=== PATIENT | female | born 1945 | race Caucasian/White ===

== ENCOUNTER 2023-01-17 13:12 | Emergency (ER) | payer MEDICARE, OTHER ==
[2023-01-17] MEDS ORDERED: Ketorolac Tromethamine 30 MG/ML VIAL ONE (15:07)
[2023-01-17] MEDS ORDERED: traMADol HCl 50 MG TAB ONE (15:07)
== END 2023-01-17 16:01 | disposition short-term general hospital (02) ==
LOC: ERS 13:12
DX: L08.9 Local infection of the skin and subcutaneous tissue, unspecified (principal); E78.5 Hyperlipidemia, unspecified; I10 Essential (primary) hypertension
CPT/HCPCS: 96372; J1885

== ENCOUNTER 2023-05-02 16:04 | Inpatient (IN) | payer MEDICARE, OTHER ==
[2023-05-02 17:01] LABS: #Monocytes 0.4 thou/uL (0.11-0.59); #Neutrophils 2.3 thou/uL (1.40-6.50); %Basophils 0.3 % (0.0-1.0); %Lymphocytes 28.1 % (21.0-51.0); %Monocytes 9.3 % (0.0-10.0); %Neutrophils 60.3 % (42.0-75.0); Hematocrit 22.4 % (36.0-47.0); Hemoglobin 7.5 g/dL (12.0-16.0); Mean Corpuscular HGB CONC 33.5 g/dL (32.0-36.0); Mean Corpuscular Hemoglobin 30.6 pg (27.0-31.0); Mean Corpuscular Volume 91.4 fl (78.0-98.0); Mean Platelet Volume 11.9 fL (7.4-10.4); RBC Distribution Width 16.3 % (11.5-14.5); Red Blood Cell (RBC) Count 2.45 mill/uL (4.20-5.40); White Blood Cell (WBC) Count 3.9 10x3/uL (4.8-10.8)
[2023-05-02 17:03] LABS: Platelet Count 63 10x3/uL (130-400)
[2023-05-02 17:19] LABS: INR-International Normal Ratio 0.9; Prothrombin Time 12.5 sec (12.0-14.7)
[2023-05-02 17:20] LABS: PTT 31.4 sec (22.9-36.1)
[2023-05-02 17:25] LABS: ALT (SGPT) 19 U/L (8-55); AST (SGOT) 25 U/L (5-34); Albumin 3.1 g/dL (3.4-4.8); Alkaline Phosphatase 110 U/L (40-110); Anion Gap 13 mmol/L (10-20); BUN (Urea Nitrogen) 17 mg/dL (9.8-20.1); Bilirubin, Total 0.3 mg/dL (0.2-1.2); Calc. Creatinine Clearance 0 mL/min (70-130); Calcium 8.7 mg/dL (7.8-10.44); Carbon Dioxide 25 mmol/L (23-31); Chloride 96 mmol/L (98-107); Estimated GFR 48; Globulin 2.4 g/dL (2.4-3.5); Glucose 95 mg/dL (83-110); Potassium 4.4 mmol/L (3.5-5.1); Protein, Total 5.5 g/dL (5.8-8.1); Sodium 130 mmol/L (136-145)
[2023-05-02] MEDS ORDERED: traMADol HCl 50 MG TAB PO PRN (20:19)
[2023-05-02 21:36] VITALS: BMI 23.5
[2023-05-02] MEDS: Sodium Chloride 0.9% 1,000 ML IV SCH (21:53)
[2023-05-03 07:57] LABS: #Eosinphils 0.1 thou/uL (0.0-0.7); #Monocytes 0.6 thou/uL (0.11-0.59); #Neutrophils 2.2 thou/uL (1.40-6.50); %Basophils 0.5 % (0.0-1.0); %Eosinophils 1.6 % (0.0-10.0); %Lymphocytes 34.7 % (21.0-51.0); %Monocytes 13.4 % (0.0-10.0); %Neutrophils 48.7 % (42.0-75.0); Hematocrit 22.6 % (36.0-47.0); Hemoglobin 7.4 g/dL (12.0-16.0); Mean Corpuscular HGB CONC 32.7 g/dL (32.0-36.0); Mean Corpuscular Hemoglobin 30.5 pg (27.0-31.0); Mean Platelet Volume 12.5 fL (7.4-10.4); RBC Distribution Width 16.5 % (11.5-14.5); Red Blood Cell (RBC) Count 2.43 mill/uL (4.20-5.40); White Blood Cell (WBC) Count 4.4 10x3/uL (4.8-10.8)
[2023-05-03 08:03] LABS: Platelet Count 57 10x3/uL (130-400)
[2023-05-03 08:31] LABS: ALT (SGPT) 14 U/L (8-55); AST (SGOT) 20 U/L (5-34); Albumin 2.5 g/dL (3.4-4.8); Alkaline Phosphatase 93 U/L (40-110); Anion Gap 15 mmol/L (10-20); BUN (Urea Nitrogen) 13 mg/dL (9.8-20.1); Bilirubin, Total 0.3 mg/dL (0.2-1.2); Calc. Creatinine Clearance 47 mL/min (70-130); Calcium 8.5 mg/dL (7.8-10.44); Carbon Dioxide 20 mmol/L (23-31); Chloride 102 mmol/L (98-107); Estimated GFR 65; Globulin 2.1 g/dL (2.4-3.5); Glucose 75 mg/dL (83-110); Iron 31 ug/dL (50-170); Potassium 4.3 mmol/L (3.5-5.1); Protein, Total 4.6 g/dL (5.8-8.1); Sodium 133 mmol/L (136-145)
[2023-05-03 08:52] LABS: Iron Binding Capacity, Total 116 mcg/dL (265-497)
[2023-05-03] MEDS: Atorvastatin Calcium 40 MG TAB PO SCH (10:05)
[2023-05-03] MEDS: cloNIDine 0.1 MG TAB PO SCH (10:05)
[2023-05-03] MEDS ORDERED: Iopamidol-370 76% 500 ML MDV (1 ML CHARGE) ONE (10:36)
[2023-05-03] MEDS ORDERED: Iron, Sodium Ferric Gluconate 250 MG in Sodium Chloride 0.9% 250 ML 250 ML IVPB SCH (12:00)
[2023-05-03] MEDS: Sodium Chloride 0.9% 1,000 ML IV SCH (20:42)
[2023-05-04] MEDS: Atorvastatin Calcium 40 MG TAB PO SCH (08:37)
[2023-05-04] MEDS: cloNIDine 0.1 MG TAB PO SCH (08:40)
[2023-05-04 13:57] LABS: #Eosinphils 0.1 thou/uL (0.0-0.7); #Neutrophils 3.4 thou/uL (1.40-6.50); %Basophils 0.6 % (0.0-1.0); %Eosinophils 0.9 % (0.0-10.0); %Lymphocytes 28.7 % (21.0-51.0); %Monocytes 15.4 % (0.0-10.0); Hematocrit 24.3 % (36.0-47.0); Hemoglobin 7.7 g/dL (12.0-16.0); Mean Corpuscular HGB CONC 31.7 g/dL (32.0-36.0); Mean Corpuscular Hemoglobin 30.2 pg (27.0-31.0); Mean Corpuscular Volume 95.3 fl (78.0-98.0); Mean Platelet Volume 12.2 fL (7.4-10.4); Red Blood Cell (RBC) Count 2.55 mill/uL (4.20-5.40); White Blood Cell (WBC) Count 6.7 10x3/uL (4.8-10.8)
[2023-05-04 13:58] LABS: Platelet Count 91 10x3/uL (130-400)
[2023-05-04 14:20] LABS: ALT (SGPT) 16 U/L (8-55); AST (SGOT) 22 U/L (5-34); Albumin 2.8 g/dL (3.4-4.8); Alkaline Phosphatase 103 U/L (40-110); Anion Gap 15 mmol/L (10-20); BUN (Urea Nitrogen) 7 mg/dL (9.8-20.1); Bilirubin, Total 0.2 mg/dL (0.2-1.2); Calc. Creatinine Clearance 53 mL/min (70-130); Calcium 8.4 mg/dL (7.8-10.44); Carbon Dioxide 22 mmol/L (23-31); Chloride 102 mmol/L (98-107); Estimated GFR 73; Globulin 2.2 g/dL (2.4-3.5); Glucose 68 mg/dL (83-110); Potassium 3.8 mmol/L (3.5-5.1); Sodium 135 mmol/L (136-145)
[2023-05-04] MEDS: Sodium Chloride 0.9% 1,000 ML IV SCH (18:03)
[2023-05-05 06:51] LABS: Hematocrit 21.9 % (36.0-47.0); Hemoglobin 7.2 g/dL (12.0-16.0); Mean Corpuscular HGB CONC 32.9 g/dL (32.0-36.0); Mean Corpuscular Hemoglobin 30.3 pg (27.0-31.0); Mean Platelet Volume 11.4 fL (7.4-10.4); Platelet Count 142 10x3/uL (130-400); RBC Distribution Width 17.1 % (11.5-14.5); Red Blood Cell (RBC) Count 2.38 mill/uL (4.20-5.40); White Blood Cell (WBC) Count 5.6 10x3/uL (4.8-10.8)
[2023-05-05 06:58] LABS: Delete Auto Diff?? YES; Manual Diff?? YES
[2023-05-05 07:16] LABS: Anion Gap 11 mmol/L (10-20); BUN (Urea Nitrogen) 5 mg/dL (9.8-20.1); Calc. Creatinine Clearance 57 mL/min (70-130); Calcium 8.3 mg/dL (7.8-10.44); Carbon Dioxide 25 mmol/L (23-31); Chloride 103 mmol/L (98-107); Estimated GFR 80; Glucose 66 mg/dL (83-110); Potassium 4.1 mmol/L (3.5-5.1); Sodium 135 mmol/L (136-145)
[2023-05-05 07:33] VITALS: TEMP 98.3
[2023-05-05 08:23] LABS: Band 8 % (5-11); Lymphocytes 37 % (21-51); Metamyelocyte 4 % (0-0); Monocytes 7 % (0-10); Myelocyte 3 % (0-0); Neutrophil 41 % (42-75); Platelet Adequacy Comment Platelets Normal; Polychromasia SLIGHT = 2-3 cells (100X) (0-2/hpf)
[2023-05-05] MEDS: cloNIDine 0.1 MG TAB PO SCH (08:31)
[2023-05-05] MEDS: Atorvastatin Calcium 40 MG TAB PO SCH (08:31)
[2023-05-05 12:25] VITALS: BP 146/70
[2023-05-06] MEDS ORDERED: Ferrous Sulfate 325 MG TAB PO SCH (08:00)
== END 2023-05-05 15:57 | DRG 809 ==
LOC: ERS 16:04 → T4-B 18:51 → OBSVTOIN 05-05 12:46
PROVIDERS: ADMIT Internal Medicine Nephrology; ATTEND Internal Medicine Nephrology
DX: D61.811 Other drug-induced pancytopenia (principal); E87.1 Hypo-osmolality and hyponatremia; N17.9 Acute kidney failure, unspecified; T81.31XA Disruption of external operation (surgical) wound, not elsewhere classified, initial encounter; I10 Essential (primary) hypertension; E78.5 Hyperlipidemia, unspecified; F17.210 Nicotine dependence, cigarettes, uncomplicated; T36.95XA Adverse effect of unspecified systemic antibiotic, initial encounter; I73.9 Peripheral vascular disease, unspecified; Z95.820 Peripheral vascular angioplasty status with implants and grafts; Z98.890 Other specified postprocedural states; Z88.5 Allergy status to narcotic agent; Z88.0 Allergy status to penicillin; Z79.899 Other long term (current) drug therapy; Z71.6 Tobacco abuse counseling
CPT/HCPCS: 36415; 71045; 74177; 80048; 80053; 82607; 82728; 83010; 83540; 83550; 83605; 83615; 84145; 85025; 85046; 85610; 85730; 93005; 96374; 97139; G0378; J2916; J7050; Q9967